=== PATIENT | male | born 1975 | race African-American/Black ===

== ENCOUNTER 2016-08-06 10:03 | Emergency (ER) | payer BC ==
[~2016-08-06 10:03] MED LIST: CRESTOR5 MG PO; KCL PO; LASIX20 MG PO; MEDROL DOSEPAK4 MG PO; REQUIP0.25 MG PO; VISTARIL PO; VOLTAREN75 MG PO
== END 2016-08-18 11:51 | disposition left against medical advice (07) ==
LOC: CFTX 10:03 → CED 10:03 → CFTX 11:48
DX: Z53.21 Procedure and treatment not carried out due to patient leaving prior to being seen by health care provider (principal)